=== PATIENT | female | born 1965 | race African-American/Black ===

== ENCOUNTER 2017-07-11 09:50 | Inpatient (IN) | payer MEDICARE, OTHER ==
[~2017-07-11] VITALS: Ht 170.2 cm; Wt 68.0 kg
[2017-07-11] MEDS ORDERED: THERA M PO (10:24)
[2017-07-11] MEDS ORDERED: [UNRECOGNIZED DRUG - OTHER] (10:24)
[2017-07-11] MEDS ORDERED: ASCO500C18 PO (10:24)
[2017-07-11] MEDS ORDERED: LOSA50TA21 PO (10:24)
[2017-07-11] MEDS ORDERED: FAMO-132 PO (10:24)
[2017-07-11] MEDS ORDERED: BISA10SU8 RC (10:24)
[2017-07-11] MEDS ORDERED: [UNRECOGNIZED DRUG - OTHER] PO (10:24)
[2017-07-11] MEDS ORDERED: [UNRECOGNIZED DRUG - OTHER] PO (10:24)
[2017-07-11] MEDS ORDERED: SENN-167 PO (10:24)
[2017-07-11 10:37] LABS: EOSINOPHILS # (AUTO) 0.1 K/uL (0.0-0.7)
[2017-07-11 10:39] LABS: BASOPHILS % (AUTO) 0.4 % (0.0-2.0); EOSINOPHILS % (AUTO) 0.8 % (0.0-7.0); HEMATOCRIT 23.2 % (31.2-41.9); HEMOGLOBIN 7.5 g/dL (10.9-14.3); LYMPHOCYTES # (AUTO) 1.3 K/uL (20.0-40.0); LYMPHOCYTES % (AUTO) 11.8 % (20.5-51.5); MEAN CORPUSCULAR HEMOGLOBIN 26.7 uug (24.7-32.8); MEAN CORPUSCULAR HGB CONC 32 g/dL (32.3-35.6); MEAN CORPUSCULAR VOLUME 82.6 fL (75.5-95.3); MONOCYTES # (AUTO) 0.9 K/uL (2.0-10.0); MONOCYTES % (AUTO) 8.3 % (0.0-11.0); NEUTROPHILS # (AUTO) 8.6 K/uL (1.8-8.9); NEUTROPHILS % (AUTO) 78.7 % (38.5-71.5); PLATELET COUNT (AUTO) 580 K/uL (179-408); RED BLOOD CELL COUNT(AUTO) 2.81 MIL/uL (3.63-4.92); WHITE BLOOD COUNT (AUTO) 10.9 K/uL (3.8-11.8)
[2017-07-11 10:47] LABS: CARBON DIOXIDE 24 mmol/L (21-32); CHLORIDE 100 mmol/L (98-107); CREATININE 0.6 mg/dL (0.6-1.3); GLUCOSE 124 mg/dL (74-106); POTASSIUM 4.1 mmol/L (3.5-5.1); UREA NITROGEN, BLOOD 8 mg/dL (7-18)
[2017-07-11 10:53] LABS: ALANINE AMINOTRANSFERASE 17 U/L (14-59); ALKALINE PHOSPHATASE 177 U/L (50-136); ASPARTATE AMINOTRANSFERASE 18 U/L (15-37); BILIRUBIN,DIRECT < 0.1 mg/dL (0.0-0.2); BILIRUBIN,TOTAL 0.1 mg/dL (0.2-1.0); TOTAL PROTEIN, SERUM 8.1 g/dL (6.4-8.2)
[2017-07-11] MEDS ORDERED: MAGNESIUM HYDROXIDE 30 ML LIQUID UDC PO PRN (11:30)
[2017-07-11] MEDS ORDERED: ONDANSETRON 4 MG/2 ML VIAL IV PRN (11:30)
[2017-07-11] MEDS ORDERED: Z GUARD REMEDY PASTE 57 GM TUBE TOP PRN (11:30)
[2017-07-11] MEDS ORDERED: ACETAMINOPHEN 325 MG TABLET PO PRN (11:30)
[2017-07-11] MEDS ORDERED: DEXT15DR6 EACHEYE (11:45)
[2017-07-11] MEDS ORDERED: LEVO112T5 PO (11:45)
[2017-07-11] MEDS ORDERED: POLY255P2 PO (11:45)
[2017-07-11] MEDS ORDERED: FERR325T28 PO (11:45)
[2017-07-11] MEDS ORDERED: ONDA4TAB11 PO (11:45)
[2017-07-11] MEDS ORDERED: DEXT15DR25 EACHEYE (11:45)
[2017-07-11] MEDS ORDERED: ZINC220C8 PO (11:45)
[2017-07-11] MEDS ORDERED: AMLO5TAB2 PO (11:45)
[2017-07-11] MEDS ORDERED: MAGN296S31 PO (11:45)
[2017-07-11] MEDS ORDERED: HEPARIN SOD SQ (11:45)
[2017-07-11] MEDS ORDERED: MUPI22OI2 (11:45)
[2017-07-11] MEDS ORDERED: LABE100T PO (11:45)
[2017-07-11] MEDS ORDERED: MAGNESIUM CITRATE 296 ML BOTTLE PO PRN (14:15)
[2017-07-11] MEDS ORDERED: POLYETHYLENE GLYCOL 3350 238 GM POWDER PO PRN (14:15)
[2017-07-11] MEDS ORDERED: BISACODYL 10 MG SUPP.RECT RC PRN (14:15)
[2017-07-11] MEDS: AMLODIPINE 5 MG TABLET PO SCH ×2 (14:15→21:00)
[2017-07-11] MEDS ORDERED: MIRALAX 17 GM POWD.PACK PO PRN (14:30)
[2017-07-11] MEDS: PIPERACILLIN/TAZOBACTAM/D5W 50 ML IV SCH ×2 (14:50→19:43)
[2017-07-11] MEDS: IV NS 1000 ML 1,000 ML IV PRN (15:04)
[2017-07-11 15:56] VITALS: BP 125/66
[2017-07-11] MEDS: FERROUS SULFATE 325 MG TABEC PO SCH (17:09)
[2017-07-11] MEDS: POLYVINYL ALCOHOL OPHT DROPS 15 ML BOTTLE EACHEYE SCH ×2 (17:09→23:43)
[2017-07-11] MEDS: LABETALOL HCL 100 MG TABLET PO SCH (17:09)
[2017-07-11 17:14] LABS: *BILIRUBIN,URIN NEGATIVE (NEGATIVE); *BLOOD, URINE 2+ (NEGATIVE); *COLOR,URINE YELLOW (YELLOW); *KETONES,URINE NEGATIVE (NEGATIVE); *PROTEIN,URINE 1+ (NEGATIVE); *UROBILINOGEN,URINE 0.2 E.U./dl (NORMAL); LEUKOCYTE ESTERASE ,URINE 3+ (NEGATIVE); NITRITE, URINE NEGATIVE (NEGATIVE); UGLUCOSE NEGATIVE (NEGATIVE)
[2017-07-11 17:31] LABS: *CLARITY,URINE SLIGHTLY CLOUDY (CLEAR)
[2017-07-11 17:44] LABS: BACTERIA,URINE MANY /HPF (NONE SEEN); SQUAMOUS EPITHELIAL CELL,UR FEW /HPF (NONE SEEN); WBC,URINE 50-80 /HPF (0-3)
[2017-07-11 17:55] LABS: HEMATOCRIT 24.7 % (31.2-41.9); HEMOGLOBIN 8.1 g/dL (10.9-14.3)
[2017-07-11 20:18] VITALS: BP 109/59
[2017-07-11 20:55] LABS: *OCCULT BLOOD STOOL NEGATIVE (NEGATIVE)
[2017-07-11] MEDS: LOSARTAN POTASSIUM 50 MG TABLET PO SCH (20:59)
[2017-07-11] MEDS: SENNOSIDES 1 TABLET PO SCH (21:00)
[2017-07-12] VITALS (9 sets, daily range): BP systolic 102–119; BP diastolic 61–74
[2017-07-12] MEDS: PIPERACILLIN/TAZOBACTAM/D5W 50 ML IV SCH ×2 (03:24→09:20)
[2017-07-12] MEDS: POLYVINYL ALCOHOL OPHT DROPS 15 ML BOTTLE EACHEYE SCH ×4 (06:33→23:48)
[2017-07-12] MEDS: LEVOTHYROXINE SODIUM 112 MCG TABLET PO SCH (06:33)
[2017-07-12 08:29] LABS: BILIRUBIN,TOTAL 0.7 mg/dL (0.2-1.0); CREATININE 0.6 mg/dL (0.6-1.3); MAGNESIUM 1.8 mg/dL (1.8-2.4); PHOSPHOROUS 4.4 mg/dL (2.5-4.9); TOTAL PROTEIN, SERUM 8.1 g/dL (6.4-8.2)
[2017-07-12 08:57] LABS: BASOPHILS % (AUTO) 0.5 % (0.0-2.0); EOSINOPHILS # (AUTO) 0.1 K/uL (0.0-0.7); EOSINOPHILS % (AUTO) 1.3 % (0.0-7.0); HEMATOCRIT 25.6 % (31.2-41.9); HEMOGLOBIN 8.5 g/dL (10.9-14.3); LYMPHOCYTES # (AUTO) 1.1 K/uL (20.0-40.0); LYMPHOCYTES % (AUTO) 12.4 % (20.5-51.5); MEAN CORPUSCULAR HEMOGLOBIN 27.5 uug (24.7-32.8); MEAN CORPUSCULAR HGB CONC 33 g/dL (32.3-35.6); MEAN CORPUSCULAR VOLUME 82.4 fL (75.5-95.3); MONOCYTES # (AUTO) 0.7 K/uL (2.0-10.0); MONOCYTES % (AUTO) 8.1 % (0.0-11.0); NEUTROPHILS # (AUTO) 6.8 K/uL (1.8-8.9); NEUTROPHILS % (AUTO) 77.7 % (38.5-71.5); PLATELET COUNT (AUTO) 504 K/uL (179-408); WHITE BLOOD COUNT (AUTO) 8.8 K/uL (3.8-11.8)
[2017-07-12] MEDS ORDERED: PANTOPRAZOLE SODIUM 40 MG TABLET.DR PO SCH (09:00)
[2017-07-12] MEDS ORDERED: Medication Not On Formulary EA (Ascorbic Acid (Vitamin C) 500 MG) PO SCH (09:00)
[2017-07-12] MEDS: DOCUSATE SODIUM 100 MG CAPSULE PO SCH ×2 (10:18→20:32)
[2017-07-12] MEDS: AMLODIPINE 5 MG TABLET PO SCH ×2 (10:18→20:32)
[2017-07-12] MEDS: ASCORBIC ACID 500 MG TABLET PO SCH (10:18)
[2017-07-12] MEDS: LABETALOL HCL 100 MG TABLET PO SCH ×2 (10:19→17:14)
[2017-07-12] MEDS: LOSARTAN POTASSIUM 50 MG TABLET PO SCH ×2 (10:20→20:31)
[2017-07-12] MEDS: ZINC SULFATE 220 MG CAPSULE PO SCH (10:20)
[2017-07-12] MEDS: FERROUS SULFATE 325 MG TABEC PO SCH ×2 (10:20→16:47)
[2017-07-12] MEDS: PANTOPRAZOLE SODIUM 40 MG VIAL IV SCH (10:20)
[2017-07-12 11:10] LABS: THYROID STIMULATING HORMONE 4.526 mIU/mL (0.358-3.740)
[2017-07-12] MEDS: CEFTRIAXONE 1 G in IV DEXTROSE 5% 50 ML IV SCH (11:28)
[2017-07-12] MEDS: PROTEIN SUPPLEMENT (PROSTAT) 30 ML LIQUID PO SCH ×2 (12:00→17:00)
[2017-07-12] MEDS: SENNOSIDES 1 TABLET PO SCH (20:31)
[2017-07-13] MEDS: IV NS 1000 ML 1,000 ML IV PRN ×3 (00:31→21:15)
[2017-07-13 06:00] VITALS: BP 120/57
[2017-07-13] MEDS: LEVOTHYROXINE SODIUM 112 MCG TABLET PO SCH (06:26)
[2017-07-13] MEDS: POLYVINYL ALCOHOL OPHT DROPS 15 ML BOTTLE EACHEYE SCH ×4 (06:26→23:58)
[2017-07-13 06:54] LABS: ALANINE AMINOTRANSFERASE 21 U/L (14-59); ALKALINE PHOSPHATASE 171 U/L (50-136); ASPARTATE AMINOTRANSFERASE 17 U/L (15-37); BILIRUBIN,TOTAL 0.3 mg/dL (0.2-1.0); CARBON DIOXIDE 25 mmol/L (21-32); CHLORIDE 105 mmol/L (98-107); CREATININE 0.5 mg/dL (0.6-1.3); GLUCOSE 98 mg/dL (74-106); MAGNESIUM 1.8 mg/dL (1.8-2.4); PHOSPHOROUS 3.8 mg/dL (2.5-4.9); POTASSIUM 3.8 mmol/L (3.5-5.1); TOTAL PROTEIN, SERUM 7.5 g/dL (6.4-8.2); UREA NITROGEN, BLOOD 6 mg/dL (7-18)
[2017-07-13] MEDS: PROTEIN SUPPLEMENT (PROSTAT) 30 ML LIQUID PO SCH ×3 (08:00→16:51)
[2017-07-13] MEDS: LOSARTAN POTASSIUM 50 MG TABLET PO SCH ×2 (09:00→21:14)
[2017-07-13] MEDS: AMLODIPINE 5 MG TABLET PO SCH ×2 (09:00→21:14)
[2017-07-13] MEDS: DOCUSATE SODIUM 100 MG CAPSULE PO SCH ×2 (09:00→21:14)
[2017-07-13] MEDS: ASCORBIC ACID 500 MG TABLET PO SCH (09:00)
[2017-07-13] MEDS: ZINC SULFATE 220 MG CAPSULE PO SCH (09:00)
[2017-07-13] MEDS: LABETALOL HCL 100 MG TABLET PO SCH ×2 (09:00→16:38)
[2017-07-13] MEDS: FERROUS SULFATE 325 MG TABEC PO SCH ×2 (09:00→16:39)
[2017-07-13] MEDS: CEFTRIAXONE 1 G in IV DEXTROSE 5% 50 ML IV SCH (09:33)
[2017-07-13] MEDS: PANTOPRAZOLE SODIUM 40 MG VIAL IV SCH (09:33)
[2017-07-13 09:48] VITALS: BP 131/64
[2017-07-13 12:01] VITALS: BP 112/66
[2017-07-13 15:38] VITALS: BP 107/64
[2017-07-13 15:48] LABS: BASOPHILS # (AUTO) 0.1 K/uL (0.0-8.0); BASOPHILS % (AUTO) 0.8 % (0.0-2.0); EOSINOPHILS # (AUTO) 0.1 K/uL (0.0-0.7); EOSINOPHILS % (AUTO) 1.5 % (0.0-7.0); HEMATOCRIT 24.7 % (31.2-41.9); HEMOGLOBIN 8.2 g/dL (10.9-14.3); LYMPHOCYTES # (AUTO) 1.5 K/uL (20.0-40.0); LYMPHOCYTES % (AUTO) 19.4 % (20.5-51.5); MEAN CORPUSCULAR HEMOGLOBIN 27.4 uug (24.7-32.8); MEAN CORPUSCULAR HGB CONC 33 g/dL (32.3-35.6); MEAN CORPUSCULAR VOLUME 82.3 fL (75.5-95.3); MONOCYTES # (AUTO) 0.6 K/uL (2.0-10.0); MONOCYTES % (AUTO) 7.4 % (0.0-11.0); NEUTROPHILS # (AUTO) 5.5 K/uL (1.8-8.9); NEUTROPHILS % (AUTO) 70.9 % (38.5-71.5); PLATELET COUNT (AUTO) 542 K/uL (179-408); RED BLOOD CELL COUNT(AUTO) 3.01 MIL/uL (3.63-4.92); WHITE BLOOD COUNT (AUTO) 7.7 K/uL (3.8-11.8)
[2017-07-13 20:00] VITALS: BP 119/71
[2017-07-13] MEDS: SENNOSIDES 1 TABLET PO SCH (21:14)
[2017-07-13] MEDS ORDERED: FUROSEMIDE 20 MG/2 ML VIAL IV PRN (21:30)
[2017-07-14] VITALS (12 sets, daily range): BP systolic 113–141; BP diastolic 62–81
[2017-07-14] MEDS: POLYVINYL ALCOHOL OPHT DROPS 15 ML BOTTLE EACHEYE SCH ×3 (06:17→17:40)
[2017-07-14] MEDS: LEVOTHYROXINE SODIUM 112 MCG TABLET PO SCH (06:17)
[2017-07-14 08:41] LABS: BASOPHILS % (AUTO) 0.6 % (0.0-2.0); EOSINOPHILS # (AUTO) 0.1 K/uL (0.0-0.7); EOSINOPHILS % (AUTO) 1.4 % (0.0-7.0); LYMPHOCYTES # (AUTO) 1.6 K/uL (20.0-40.0); LYMPHOCYTES % (AUTO) 20.3 % (20.5-51.5); MEAN CORPUSCULAR HEMOGLOBIN 27.7 uug (24.7-32.8); MEAN CORPUSCULAR HGB CONC 34 g/dL (32.3-35.6); MEAN CORPUSCULAR VOLUME 82.5 fL (75.5-95.3); MONOCYTES # (AUTO) 0.6 K/uL (2.0-10.0); MONOCYTES % (AUTO) 7.5 % (0.0-11.0); NEUTROPHILS # (AUTO) 5.6 K/uL (1.8-8.9); NEUTROPHILS % (AUTO) 70.2 % (38.5-71.5); PLATELET COUNT (AUTO) 571 K/uL (179-408); RED BLOOD CELL COUNT(AUTO) 3.81 MIL/uL (3.63-4.92); WHITE BLOOD COUNT (AUTO) 7.9 K/uL (3.8-11.8)
[2017-07-14 08:49] LABS: HEMATOCRIT 31.4 % (31.2-41.9); HEMOGLOBIN 10.6 g/dL (10.9-14.3)
[2017-07-14] MEDS: PROTEIN SUPPLEMENT (PROSTAT) 30 ML LIQUID PO SCH ×3 (08:51→17:40)
[2017-07-14] MEDS: ZINC SULFATE 220 MG CAPSULE PO SCH (08:51)
[2017-07-14] MEDS: PANTOPRAZOLE SODIUM 40 MG VIAL IV SCH ×2 (08:52→09:00)
[2017-07-14] MEDS: DOCUSATE SODIUM 100 MG CAPSULE PO SCH ×2 (08:52→20:37)
[2017-07-14] MEDS: FERROUS SULFATE 325 MG TABEC PO SCH ×2 (08:52→17:39)
[2017-07-14] MEDS: ASCORBIC ACID 500 MG TABLET PO SCH (08:52)
[2017-07-14 08:53] LABS: ALANINE AMINOTRANSFERASE 18 U/L (14-59); ALKALINE PHOSPHATASE 164 U/L (50-136); ASPARTATE AMINOTRANSFERASE 16 U/L (15-37); BILIRUBIN,TOTAL 0.4 mg/dL (0.2-1.0); CARBON DIOXIDE 25 mmol/L (21-32); CHLORIDE 105 mmol/L (98-107); CREATININE 0.4 mg/dL (0.6-1.3); GLUCOSE 104 mg/dL (74-106); MAGNESIUM 1.8 mg/dL (1.8-2.4); PHOSPHOROUS 4.1 mg/dL (2.5-4.9); POTASSIUM 3.7 mmol/L (3.5-5.1); TOTAL PROTEIN, SERUM 8.3 g/dL (6.4-8.2); UREA NITROGEN, BLOOD 7 mg/dL (7-18)
[2017-07-14] MEDS: LABETALOL HCL 100 MG TABLET PO SCH ×2 (08:53→17:40)
[2017-07-14] MEDS: AMLODIPINE 5 MG TABLET PO SCH ×2 (08:54→20:38)
[2017-07-14] MEDS: LOSARTAN POTASSIUM 50 MG TABLET PO SCH ×2 (08:55→20:38)
[2017-07-14] MEDS: CEFTRIAXONE 1 G in IV DEXTROSE 5% 50 ML IV SCH (09:53)
[2017-07-14] MEDS ORDERED: DOCU100C36 PO (13:58)
[2017-07-14] MEDS ORDERED: LACT1CAP57 PO (13:58)
[2017-07-14] MEDS ORDERED: ACET325T53 PO (13:58)
[2017-07-14] MEDS ORDERED: PROT30LI PO (13:58)
[2017-07-14] MEDS ORDERED: CEPH500C2 PO (13:58)
[2017-07-14] MEDS ORDERED: PANT40TA2 PO (13:58)
[2017-07-14] MEDS ORDERED: POLY15DR27 EACHEYE (13:58)
[2017-07-14] MEDS ORDERED: CEPHALEXIN MONOHYDRATE 500 MG CAPSULE PO SCH (14:00)
[2017-07-14] MEDS: SENNOSIDES 1 TABLET PO SCH (20:37)
[2017-07-14] MEDS ORDERED: LACTOBACILLUS RHAMNOSUS GG 1 EACH CAPSULE PO SCH (21:00)
[2017-07-15] MEDS ORDERED: PANTOPRAZOLE SODIUM 40 MG TABLET.DR PO SCH (07:00)
== END 2017-07-14 20:15 | DRG 811 ==
LOC: ER 09:50 → MED 11:37
PROVIDERS: ADMIT Internal Medicine; ATTEND Nurse Practitioner Acute Care
PROC: 30233N1 Transfusion of Nonautologous Red Blood Cells into Peripheral Vein, Percutaneous Approach (ICD-10-PCS; principal; 2017-07-12)
DX: D64.9 Anemia, unspecified (principal); E43 Unspecified severe protein-calorie malnutrition; L89.154 Pressure ulcer of sacral region, stage 4; E87.2 Acidosis; G82.20 Paraplegia, unspecified; K59.2 Neurogenic bowel, not elsewhere classified; E87.1 Hypo-osmolality and hyponatremia; N39.0 Urinary tract infection, site not specified; N31.9 Neuromuscular dysfunction of bladder, unspecified; I11.9 Hypertensive heart disease without heart failure; Z93.50 Unspecified cystostomy status; H54.3 Unqualified visual loss, both eyes; T14.90XS Injury, unspecified, sequela; V89.2XXS Person injured in unspecified motor-vehicle accident, traffic, sequela; Z82.49 Family history of ischemic heart disease and other diseases of the circulatory system; Z80.8 Family history of malignant neoplasm of other organs or systems; Z80.6 Family history of leukemia; Z80.3 Family history of malignant neoplasm of breast; B96.20 Unspecified Escherichia coli [E. coli] as the cause of diseases classified elsewhere; K56.41 Fecal impaction; K21.9 Gastro-esophageal reflux disease without esophagitis; E03.9 Hypothyroidism, unspecified; Z90.49 Acquired absence of other specified parts of digestive tract; Z68.23 Body mass index [BMI] 23.0-23.9, adult; D47.3 Essential (hemorrhagic) thrombocythemia; R79.89 Other specified abnormal findings of blood chemistry
CPT/HCPCS: 36415; 70030-TC; 71045; 83550; 83605; 83735; 84100; 84443; 84481; 84703; 85018; 85025; 85730; 86850; 86900; 86901; 86920; 87040; 87077; 87086; 93005; A4217; A4663; C9113; J0696; J2405; J2543; J7030; J7040; J7060; P9016-BL; P9021

== ENCOUNTER 2017-12-07 10:21 | Inpatient (IN) | payer MEDICARE, OTHER ==
[~2017-12-07] VITALS: Ht 170.2 cm; Wt 72.6 kg
[~2017-12-07 10:21] MED LIST: ACET325T53 PO; AMLO5TAB2 PO; ASCO500C18 PO; BISA10SU8 RC; CEPH500C2 PO; DOCU100C36 PO; LACT1CAP57 PO; LEVO112T5 PO; MAGN296S31 PO; ONDA4TAB11 PO; PANT40TA2 PO; POLY15DR27 EACHEYE; POLY255P2 PO; PROT30LI PO; SENN-167 PO; ZINC220C8 PO
[2017-12-07] MEDS ORDERED: MULT-1185 PO (10:42)
[2017-12-07] MEDS ORDERED: FERR324T4 PO (10:42)
--- NOTE | 2017-12-07 10:46 | NUR ---
PT IS IN ROOM #2A. DR BOLANOS EVALUATED THE PT. AFTER 6 ATTEMPTS 3 NURSES UNABLE TO INSERT IV ACCESS. PT HAS NO USABLE VEINS. FRANCOISE BOLANOS NOTIFIED.
[2017-12-07] MEDS ORDERED: IV NORMAL SALINE 1000 ML BAG IV ONE (11:00)
[2017-12-07 11:32] LABS: BASOPHILS % (AUTO) 0.3 % (0.0-2.0); HEMATOCRIT 34.3 % (31.2-41.9); HEMOGLOBIN 11.1 g/dL (10.9-14.3); LYMPHOCYTES # (AUTO) 0.5 K/uL (20.0-40.0); LYMPHOCYTES % (AUTO) 4.5 % (20.5-51.5); MEAN CORPUSCULAR HEMOGLOBIN 25.6 uug (24.7-32.8); MEAN CORPUSCULAR HGB CONC 32 g/dL (32.3-35.6); MEAN CORPUSCULAR VOLUME 79.5 fL (75.5-95.3); MONOCYTES # (AUTO) 0.1 K/uL (2.0-10.0); MONOCYTES % (AUTO) 1.3 % (0.0-11.0); NEUTROPHILS # (AUTO) 10.4 K/uL (1.8-8.9); NEUTROPHILS % (AUTO) 93.9 % (38.5-71.5); PLATELET COUNT (AUTO) 440 K/uL (179-408); RED BLOOD CELL COUNT(AUTO) 4.32 MIL/uL (3.63-4.92); WHITE BLOOD COUNT (AUTO) 11.1 K/uL (3.8-11.8)
--- NOTE | 2017-12-07 11:36 | NUR ---
DR BOLANOS TRIED TO INSERT IV S/L TO PT'S NECK VEINS, NO SUCCESS. NURSING NON DESTRUCTIVE EVALUATION SPECIALIST MARSHALL WAS CALLED FOR PICC LINE SPECIALIST ACCORDING TO DR BOLANOS ORDER.
[2017-12-07 11:40] LABS: CREATININE 1.4 mg/dL (0.6-1.3); POTASSIUM 4.4 mmol/L (3.5-5.1)
[2017-12-07 11:46] LABS: BILIRUBIN,DIRECT 0.3 mg/dL (0.0-0.2); TOTAL PROTEIN, SERUM 7.8 g/dL (6.4-8.2)
--- NOTE | 2017-12-07 12:10 | NUR ---
3 LYMENS CENTAL LINE WAS INSERTED BY DR BOLANOS IN PT's RIGHT GROIN AREA. PT TOLERATED TO PROCEDURE WITHOUT COMPLCATIONS.
[2017-12-07] MEDS ORDERED: PIPERACILLIN SODIUM/TAZOBACTAM 3.375 G in IV DEXTROSE 5% 50 ML IV ONE (12:30)
[2017-12-07] MEDS ORDERED: VANCOMYCIN IV 200 ML IV ONE (12:30)
[2017-12-07 13:15] LABS: *BILIRUBIN,URIN NEGATIVE (NEGATIVE); *BLOOD, URINE 3+ (NEGATIVE); *CLARITY,URINE CLOUDY (CLEAR); *COLOR,URINE YELLOW (YELLOW); *KETONES,URINE NEGATIVE (NEGATIVE); LEUKOCYTE ESTERASE ,URINE 1+ (NEGATIVE); NITRITE, URINE NEGATIVE (NEGATIVE); UGLUCOSE NEGATIVE (NEGATIVE)
[2017-12-07 13:19] LABS: *PROTEIN,URINE 3+ (NEGATIVE)
[2017-12-07 13:23] LABS: BACTERIA,URINE FEW /HPF (NONE SEEN); SQUAMOUS EPITHELIAL CELL,UR FEW /HPF (NONE SEEN); WBC,URINE TNTC /HPF (0-3)
[2017-12-07] MEDS ORDERED: VANCOMYCIN IV 200 ML ONE (14:14)
[2017-12-07] MEDS ORDERED: PIPERACILLIN/TAZOBACTAM/D5W 50 ML IV ONE (14:14)
[2017-12-07] MEDS ORDERED: MORPHINE SULFATE 2 MG/1 ML DISP.SYRIN IV PRN (14:30)
[2017-12-07] MEDS ORDERED: BISACODYL 10 MG SUPP.RECT RC PRN (14:30)
[2017-12-07] MEDS ORDERED: ACETAMINOPHEN 325 MG TABLET PO PRN (14:30)
[2017-12-07] MEDS ORDERED: MAGNESIUM HYDROXIDE 30 ML LIQUID UDC PO PRN (14:30)
[2017-12-07] MEDS ORDERED: MAGNESIUM CITRATE 296 ML BOTTLE PO SCH (14:30)
--- NOTE | 2017-12-07 14:42 | NUR ---
REPORT GIVEN TO CUSTOMER LOYALTY REPRESENTATIVE. PT WAS TRANSFERED TO ROOM #205.
--- NOTE | 2017-12-07 15:15 | NUR ---
Received this admission from ER per yg, this 51 yo female with the chief complaint of nausea and vomiting with the diagnosis of Sepsis. Transferred to bed comfortably. Routine admission care rendered. placed on tele ST 115. Continued infusion of Vancomycin IV. Dr. Mills informed of admission with orders
--- NOTE | 2017-12-07 15:30 | NUR ---
Noted decubitus ulcer on sacral and buttocks area. Photos taken and wound care done. Repositioned in bed comfortably. Air mattress ordered with wound care consult
[2017-12-07 15:46] LABS: *URINE HCG, QUAL NEGATIVE (NEGATIVE)
[2017-12-07 16:18] VITALS: BP 123/65
--- NOTE | 2017-12-07 17:19 | NUR ---
Repeat lactic acid drawn from Triple Lumen Central Line. IVF of NS restarted, infusing well
[2017-12-07] MEDS: PIPERACILLIN/TAZOBACTAM/D5W 50 ML IV SCH ×2 (17:48→23:11)
[2017-12-07] MEDS: POLYVINYL ALCOHOL OPHT DROPS 15 ML BOTTLE EACHEYE SCH ×2 (17:48→23:12)
[2017-12-07] MEDS: AMLODIPINE 5 MG TABLET PO SCH (17:49)
--- NOTE | 2017-12-07 18:02 | NUR ---
Eating fairly, assisted by . Repositioned in bed comfortably
--- NOTE | 2017-12-07 19:30 | NUR ---
Received patient from day shift nurse. Patient in stable condition at start of shift with no acute distress. Vital signs within range. Pertinent assessment completed at start of shift. Temp slightly elevated at start of shift at 100.9. Will provide cooling measures & administer Tylenol per MD order & reassess. Noted with montes cath flowing with urine. Patient has a right groin triple lumen cath flowing with IV NS at 100cc/hr. On ATB therapy. Call light within reach. Will continue to monitor through shift.
[2017-12-07 20:00] VITALS: BP 107/54
[2017-12-07] MEDS: ACETAMINOPHEN 325 MG TABLET PO PRN (20:06)
[2017-12-07] MEDS: LACTOBACILLUS RHAMNOSUS GG 1 EACH CAPSULE PO SCH (20:06)
[2017-12-07] MEDS: DOCUSATE SODIUM 100 MG CAPSULE PO SCH (20:06)
[2017-12-07] MEDS: SENNOSIDES 1 TABLET PO SCH (20:06)
--- NOTE | 2017-12-07 22:01 | NUR ---
Reassessed patient temp. Currently at 101.9. Provided cooling measures for patient. Administered Tylenol 650 at 2005. Lactic acid also increased to 3.4 critical lab value. Spoke with MD Mills. NNO per just continue to monitor.
--- NOTE | 2017-12-07 22:43 | NUR ---
Reassessed patient temp currently at 99.8. Will continue to monitor.
[2017-12-08] VITALS (7 sets, daily range): BP systolic 93–116; BP diastolic 48–62
[2017-12-08] MEDS: AMLODIPINE 5 MG TABLET PO SCH ×3 (01:54→21:10)
[2017-12-08] MEDS: POLYVINYL ALCOHOL OPHT DROPS 15 ML BOTTLE EACHEYE SCH ×4 (05:19→23:21)
[2017-12-08] MEDS: PIPERACILLIN/TAZOBACTAM/D5W 50 ML IV SCH ×4 (05:19→23:21)
[2017-12-08] MEDS: PANTOPRAZOLE SODIUM 40 MG TABLET.DR PO SCH (06:13)
[2017-12-08] MEDS: LEVOTHYROXINE SODIUM 112 MCG TABLET PO SCH (06:13)
--- NOTE | 2017-12-08 06:21 | NUR ---
Patient slept well during the night. No acute distress. Sinus Tachy on the Tele monitor.Temp was monitored closely & currently at 98.7. BP was slightly low during shift. BP med held during the shift d/t decreased BP. Currently at 109/56. All medications given per MD order. All needs attended to promptly. Skin care provided. Patient turned & reposition every 2 hours. Diaper changed per soiling. Safety measures implemented. Call light in reach of patient. Will endorse to day shift nurse.
[2017-12-08 06:43] LABS: CREATININE 0.9 mg/dL (0.6-1.3); MAGNESIUM 1.4 mg/dL (1.8-2.4); PHOSPHOROUS 4.1 mg/dL (2.5-4.9); POTASSIUM 3.5 mmol/L (3.5-5.1)
[2017-12-08 07:37] LABS: BASOPHILS % (AUTO) 0.2 % (0.0-2.0); HEMATOCRIT 27.8 % (31.2-41.9); HEMOGLOBIN 8.9 g/dL (10.9-14.3); LYMPHOCYTES # (AUTO) 0.4 K/uL (20.0-40.0); LYMPHOCYTES % (AUTO) 2.1 % (20.5-51.5); MEAN CORPUSCULAR HEMOGLOBIN 25.5 uug (24.7-32.8); MEAN CORPUSCULAR HGB CONC 32 g/dL (32.3-35.6); MEAN CORPUSCULAR VOLUME 79.7 fL (75.5-95.3); MONOCYTES # (AUTO) 0.4 K/uL (2.0-10.0); MONOCYTES % (AUTO) 1.8 % (0.0-11.0); NEUTROPHILS # (AUTO) 19.9 K/uL (1.8-8.9); NEUTROPHILS % (AUTO) 95.9 % (38.5-71.5); PLATELET COUNT (AUTO) 324 K/uL (179-408); RED BLOOD CELL COUNT(AUTO) 3.49 MIL/uL (3.63-4.92); WHITE BLOOD COUNT (AUTO) 20.8 K/uL (3.8-11.8)
--- NOTE | 2017-12-08 07:48 | NUR ---
Sleeping, comfortable, not in distress. IVF infusing. Tele ST 122
[2017-12-08] MEDS: FERROUS SULFATE 325 MG TABEC PO SCH (08:34)
[2017-12-08] MEDS: LACTOBACILLUS RHAMNOSUS GG 1 EACH CAPSULE PO SCH ×2 (08:34→21:09)
[2017-12-08] MEDS: DOCUSATE SODIUM 100 MG CAPSULE PO SCH ×2 (08:34→21:09)
[2017-12-08] MEDS: MULTIVIT, IRON, MIN NO. 8, FA TABLET PO SCH (08:35)
[2017-12-08] MEDS: ASCORBIC ACID 500 MG TABLET PO SCH (08:35)
[2017-12-08] MEDS: ACETAMINOPHEN 325 MG TABLET PO PRN ×3 (08:36→23:21)
--- NOTE | 2017-12-08 08:36 | NUR ---
Assisted with meal. Complaining of headache, Tylenol po given.Resting after.
[2017-12-08] MEDS ORDERED: Medication Not On Formulary EA (Ascorbic Acid (Vitamin C) 500 MG) PO SCH (09:00)
[2017-12-08] MEDS ORDERED: Medication Not On Formulary EA (Multivit-Min/Iron Fum/Folic AC (Multi-Vitamin-Minerals T PO SCH (09:00)
[2017-12-08] MEDS ORDERED: MIRALAX 17 GM POWD.PACK PO PRN (11:00)
[2017-12-08] MEDS ORDERED: POLYETHYLENE GLYCOL 3350 238 GM POWDER PO PRN (11:00)
--- NOTE | 2017-12-08 11:29 | NUR ---
Followed 1st step mattress delivery
[2017-12-08] MEDS ORDERED: SODIUM HYPOCHLORITE 0.25% 480 ML BOTTLE TOP SCH (12:30)
--- NOTE | 2017-12-08 12:30 | NUR ---
Seen by Karlee YOUNG, examined wound. Wound care done as ordered. Sponge bath given. Placed on 1st step mattress. Repositioned comfortably.
[2017-12-08] MEDS: MAGNESIUM SULFATE/D5W 100 ML IV SCH ×4 (13:18→17:12)
--- NOTE | 2017-12-08 19:10 | NUR ---
Repositioned comfortably, kept dry
[2017-12-08] MEDS: SODIUM HYPOCHLORITE 0.125% 473 ML BOTTLE TP SCH (21:09)
[2017-12-08] MEDS: SENNOSIDES 1 TABLET PO SCH (21:09)
--- NOTE | 2017-12-08 21:45 | NUR ---
PT'S ON BED REST COMFORTABLY,DENIED OF PAIN OR ANY DISCOMFORT.PT'S ON AIR MATTRESS FOR WOUND CARE.GOT TELEPHONE CONSENT FROM PT'S FOR DEBRIDEMENT IN AM,PER PT STATED THAT"I ALREADY TALKED TO MY BECAUSE ME DOCTOR ALREADY EXPLAINED TO ME TODAY IN THE AFTERNOON";ALL QUESTIONS WERE ANSWERED.ASSISTED FOR PM AND SKIN CARE ON BED;EDUCATED TO PT REGARDING WOUND CARE ORDER FROM MD;PT VERBALIZED UNDERSTANDING AND COOPERATIVE.CENTRAL LINE CARE AT THIS TIME.PT HAD LARGE BM,NORMAL STOOL NOTED.KEPT COMFORT.MAINTAINED ADEQUATE I/O.SUPRA-PUBIC CATHETER'S CARE AT THIS TIME.TELEMETRY'S ST 108/MIN.
[2017-12-08] MEDS: Z GUARD REMEDY PASTE 57 GM TUBE TOP PRN (23:22)
[2017-12-08] MEDS: IV NS 1000 ML 1,000 ML IV PRN (23:38)
[2017-12-09] VITALS: BP 119/60
--- NOTE | 2017-12-09 01:00 | NUR ---
ASSISTED PT TO REPOSITION AND KEPT WARM BLANKET REQUEST.TELEMETRY'S ST 118/MIN NOTED.CLOSELY MONITORING TO PT.KEPT CALL-LIGHT WITHIN REACH.PT DENIED OF PAIN OR ANY DISCOMFORT.
[2017-12-09 04:00] VITALS: BP 112/53
[2017-12-09] MEDS: PIPERACILLIN/TAZOBACTAM/D5W 50 ML IV SCH ×4 (05:10→23:20)
[2017-12-09] MEDS: POLYVINYL ALCOHOL OPHT DROPS 15 ML BOTTLE EACHEYE SCH ×4 (05:10→23:21)
[2017-12-09] MEDS: PANTOPRAZOLE SODIUM 40 MG TABLET.DR PO SCH (06:13)
[2017-12-09] MEDS: LEVOTHYROXINE SODIUM 112 MCG TABLET PO SCH (06:13)
--- NOTE | 2017-12-09 06:20 | NUR ---
ASSISTED PT FOR AM,SKIN CARE ON BED.PT NOTED TO HAVE LARGE BM BUT IT'S SOFT STOOL.NO DISTRESS NOTED IN THE SHIFT,PT ALSO REQUESTED TO HAVE BLANKETS X4.PT TOLERATED WELL WITH TX AND ASSISTANCE.
[2017-12-09 06:38] LABS: CREATININE 0.6 mg/dL (0.6-1.3); MAGNESIUM 2.7 mg/dL (1.8-2.4); POTASSIUM 3.4 mmol/L (3.5-5.1)
--- NOTE | 2017-12-09 07:49 | NUR ---
Received patient sleeping. No immediate s/s of SOB, pain, distress or discomfort
--- NOTE | 2017-12-09 09:00 | NUR ---
Present for debridement by Karlee Webster. Pt tolerated procedure well. After procedure, sacral wound was packed with soaked NS gauze and cover with abdominal pad and secured with paper tape. Right buttocks wound placed hydrogel and placed Mepilex, left buttock pressure injury place NS soaked gauze and cover with Mepilex Addendum: 12/09/17 at 1457 by JOELLE LEONARD RN Pt was also repositioned and changed
[2017-12-09] MEDS ORDERED: POTASSIUM CHLORIDE 20 MEQ TAB.PRT.SR PO ONE (09:45)
[2017-12-09] MEDS: LACTOBACILLUS RHAMNOSUS GG 1 EACH CAPSULE PO SCH ×2 (09:47→20:49)
[2017-12-09] MEDS: FERROUS SULFATE 325 MG TABEC PO SCH (09:47)
[2017-12-09] MEDS: AMLODIPINE 5 MG TABLET PO SCH ×2 (09:47→20:49)
[2017-12-09] MEDS: MULTIVIT, IRON, MIN NO. 8, FA TABLET PO SCH (09:47)
[2017-12-09] MEDS: ASCORBIC ACID 500 MG TABLET PO SCH (09:47)
[2017-12-09] MEDS: DOCUSATE SODIUM 100 MG CAPSULE PO SCH ×2 (09:47→20:49)
[2017-12-09 09:48] VITALS: BP 118/65
[2017-12-09] MEDS: SODIUM HYPOCHLORITE 0.125% 473 ML BOTTLE TP SCH ×2 (09:48→20:52)
[2017-12-09 09:49] LABS: BASOPHILS % (AUTO) 0.2 % (0.0-2.0); EOSINOPHILS # (AUTO) 0.1 K/uL (0.0-0.7); EOSINOPHILS % (AUTO) 0.4 % (0.0-7.0); HEMATOCRIT 24.6 % (31.2-41.9); HEMOGLOBIN 7.9 g/dL (10.9-14.3); LYMPHOCYTES # (AUTO) 0.5 K/uL (20.0-40.0); LYMPHOCYTES % (AUTO) 2.5 % (20.5-51.5); MEAN CORPUSCULAR HEMOGLOBIN 25.4 uug (24.7-32.8); MEAN CORPUSCULAR HGB CONC 32 g/dL (32.3-35.6); MEAN CORPUSCULAR VOLUME 79.4 fL (75.5-95.3); MONOCYTES # (AUTO) 0.3 K/uL (2.0-10.0); MONOCYTES % (AUTO) 1.6 % (0.0-11.0); NEUTROPHILS # (AUTO) 20.2 K/uL (1.8-8.9); NEUTROPHILS % (AUTO) 95.3 % (38.5-71.5); PLATELET COUNT (AUTO) 276 K/uL (179-408); WHITE BLOOD COUNT (AUTO) 21.2 K/uL (3.8-11.8)
[2017-12-09] MEDS: IV NS 1000 ML 1,000 ML IV PRN ×2 (10:24→20:52)
[2017-12-09 11:32] VITALS: BP 124/62
[2017-12-09] MEDS: HYDROCODONE/APAP 5-325MG TABLET PO PRN ×2 (11:49→17:39)
[2017-12-09 15:41] VITALS: BP 116/60
[2017-12-09 19:56] VITALS: BP 123/66
--- NOTE | 2017-12-09 20:00 | NUR ---
Observed to be resting in bed at this time with no s/s of acute distress noted. Pt temperature 99.7 cooling measures implemented Tele monitor sinus tachy with hr at 118 Safe environment provided at all times. Call light within reach. Will continue to monitor closely.
[2017-12-09] MEDS: SENNOSIDES 1 TABLET PO SCH (20:50)
[2017-12-09] MEDS: ACETAMINOPHEN 325 MG TABLET PO PRN (22:03)
[2017-12-10] VITALS: BP 118/56
[2017-12-10 04:00] VITALS: BP 108/63
[2017-12-10] MEDS: PIPERACILLIN/TAZOBACTAM/D5W 50 ML IV SCH ×3 (05:09→17:04)
[2017-12-10] MEDS: POLYVINYL ALCOHOL OPHT DROPS 15 ML BOTTLE EACHEYE SCH ×3 (05:10→17:04)
[2017-12-10] MEDS: PANTOPRAZOLE SODIUM 40 MG TABLET.DR PO SCH (06:06)
[2017-12-10] MEDS: HYDROCODONE/APAP 5-325MG TABLET PO PRN (06:06)
[2017-12-10] MEDS: LEVOTHYROXINE SODIUM 112 MCG TABLET PO SCH (06:06)
[2017-12-10 06:45] LABS: BASOPHILS % (AUTO) 0.1 % (0.0-2.0); EOSINOPHILS # (AUTO) 0.1 K/uL (0.0-0.7); EOSINOPHILS % (AUTO) 0.4 % (0.0-7.0); HEMATOCRIT 24.6 % (31.2-41.9); HEMOGLOBIN 7.9 g/dL (10.9-14.3); LYMPHOCYTES % (AUTO) 4.6 % (20.5-51.5); MEAN CORPUSCULAR HEMOGLOBIN 25.1 uug (24.7-32.8); MEAN CORPUSCULAR HGB CONC 32 g/dL (32.3-35.6); MEAN CORPUSCULAR VOLUME 78.3 fL (75.5-95.3); MONOCYTES # (AUTO) 0.7 K/uL (2.0-10.0); NEUTROPHILS # (AUTO) 20.2 K/uL (1.8-8.9); NEUTROPHILS % (AUTO) 91.9 % (38.5-71.5); PLATELET COUNT (AUTO) 313 K/uL (179-408); RED BLOOD CELL COUNT(AUTO) 3.15 MIL/uL (3.63-4.92); WHITE BLOOD COUNT (AUTO) 22.1 K/uL (3.8-11.8)
--- NOTE | 2017-12-10 06:57 | NUR ---
Wound care done. Frequent repositioning. All needs met. No s/s of acute distress noted at this time. Tele sinus tachy with HR at 110.
[2017-12-10 06:58] LABS: CARBON DIOXIDE 21 mmol/L (21-32); CHLORIDE 107 mmol/L (98-107); CREATININE 0.4 mg/dL (0.6-1.3); GLUCOSE 96 mg/dL (74-106); POTASSIUM 3.7 mmol/L (3.5-5.1); UREA NITROGEN, BLOOD 6 mg/dL (7-18)
--- NOTE | 2017-12-10 07:45 | NUR ---
Received pt sleeping in a semi fowlers position on her right side. No immediate s/s of SOB, pain, distress or discomfort
[2017-12-10 08:20] VITALS: BP 113/69
[2017-12-10] MEDS: MULTIVIT, IRON, MIN NO. 8, FA TABLET PO SCH (08:33)
[2017-12-10] MEDS: ASCORBIC ACID 500 MG TABLET PO SCH (08:33)
[2017-12-10] MEDS: AMLODIPINE 5 MG TABLET PO SCH ×2 (08:33→20:50)
[2017-12-10] MEDS: LACTOBACILLUS RHAMNOSUS GG 1 EACH CAPSULE PO SCH ×2 (08:33→20:49)
[2017-12-10] MEDS: FERROUS SULFATE 325 MG TABEC PO SCH (08:33)
[2017-12-10] MEDS: SODIUM HYPOCHLORITE 0.125% 473 ML BOTTLE TP SCH ×2 (08:34→20:49)
[2017-12-10] MEDS: DOCUSATE SODIUM 100 MG CAPSULE PO SCH ×2 (08:34→20:49)
--- NOTE | 2017-12-10 10:00 | NUR ---
New suprapubic cath 18F in place by candle cutter.
[2017-12-10] MEDS: IV NS 1000 ML 1,000 ML IV PRN (10:43)
--- NOTE | 2017-12-10 10:50 | NUR ---
Pt was given a bed bath by METAL STAMPER. Wound dressing changes and wound care done as ordered.
[2017-12-10 11:23] VITALS: BP 135/78
[2017-12-10] MEDS: ONDANSETRON 4 MG/2 ML VIAL IV PRN ×2 (12:13→18:24)
--- NOTE | 2017-12-10 12:19 | NUR ---
Informed by rod hanger that pt was experiencing vomiting. Immediately went to the pt.'s room and noted a small about of food particles on her towel. Niko was given Addendum: 12/10/17 at 1221 by JOELLE LEONARD RN Pt states that she will hold off on lunch for right now
[2017-12-10 16:46] VITALS: BP 128/76
[2017-12-10 19:00] VITALS: BP 122/74
[2017-12-10] MEDS: SENNOSIDES 1 TABLET PO SCH (20:49)
[2017-12-11] VITALS: BP 119/68
[2017-12-11] MEDS: PIPERACILLIN/TAZOBACTAM/D5W 50 ML IV SCH ×4 (00:01→17:18)
[2017-12-11] MEDS: POLYVINYL ALCOHOL OPHT DROPS 15 ML BOTTLE EACHEYE SCH ×4 (00:01→17:12)
[2017-12-11] MEDS: IV NS 1000 ML 1,000 ML IV PRN (00:02)
[2017-12-11] MEDS: ONDANSETRON 4 MG/2 ML VIAL IV PRN ×2 (00:11→06:21)
[2017-12-11 04:00] VITALS: BP 119/68
--- NOTE | 2017-12-11 06:00 | NUR ---
Wound care done. Frequent repositioning provided. All needs attended to. No s/s of acute distress noted at this time. Safe environment implemented. Call light within reach.
[2017-12-11] MEDS: LEVOTHYROXINE SODIUM 112 MCG TABLET PO SCH (06:16)
[2017-12-11] MEDS: PANTOPRAZOLE SODIUM 40 MG TABLET.DR PO SCH (06:16)
[2017-12-11 06:36] LABS: CARBON DIOXIDE 18 mmol/L (21-32); CHLORIDE 104 mmol/L (98-107); CREATININE 0.4 mg/dL (0.6-1.3); GLUCOSE 77 mg/dL (74-106); POTASSIUM 3.7 mmol/L (3.5-5.1); UREA NITROGEN, BLOOD 5 mg/dL (7-18)
[2017-12-11 07:31] LABS: BASOPHILS % (AUTO) 0.2 % (0.0-2.0); EOSINOPHILS # (AUTO) 0.1 K/uL (0.0-0.7); EOSINOPHILS % (AUTO) 0.6 % (0.0-7.0); HEMATOCRIT 23.4 % (31.2-41.9); HEMOGLOBIN 7.6 g/dL (10.9-14.3); LYMPHOCYTES # (AUTO) 0.9 K/uL (20.0-40.0); LYMPHOCYTES % (AUTO) 4.5 % (20.5-51.5); MEAN CORPUSCULAR HEMOGLOBIN 25.4 uug (24.7-32.8); MEAN CORPUSCULAR HGB CONC 32 g/dL (32.3-35.6); MEAN CORPUSCULAR VOLUME 78.2 fL (75.5-95.3); MONOCYTES % (AUTO) 4.8 % (0.0-11.0); NEUTROPHILS # (AUTO) 18.2 K/uL (1.8-8.9); NEUTROPHILS % (AUTO) 89.9 % (38.5-71.5); PLATELET COUNT (AUTO) 329 K/uL (179-408); RED BLOOD CELL COUNT(AUTO) 2.99 MIL/uL (3.63-4.92); WHITE BLOOD COUNT (AUTO) 20.2 K/uL (3.8-11.8)
--- NOTE | 2017-12-11 08:04 | NUR ---
WOUND CARE CONSULT WOUND CARE RECEIVED CONSULT FOR SACRAL/BUTTOCKS DECUBITUS. WOUND CARE WILL DEFER CONSULT AND ALL TREATMENT PLANS TO SURGICAL TEAM WHO ARE CURRENTLY FOLLOWING. PATIENT WITH ISAEL AT 14, ALL PRESSURE ULCER PREVENTION MEASURES ARE NOTED TO BE IN PLACE. WILL SEE PRN.
[2017-12-11] MEDS: HYDROCODONE/APAP 5-325MG TABLET PO PRN (09:33)
[2017-12-11] MEDS: MULTIVIT, IRON, MIN NO. 8, FA TABLET PO SCH (09:34)
[2017-12-11] MEDS: AMLODIPINE 5 MG TABLET PO SCH ×2 (09:34→20:33)
[2017-12-11] MEDS: FERROUS SULFATE 325 MG TABEC PO SCH (09:34)
[2017-12-11] MEDS: LACTOBACILLUS RHAMNOSUS GG 1 EACH CAPSULE PO SCH ×2 (09:34→20:26)
[2017-12-11] MEDS: ASCORBIC ACID 500 MG TABLET PO SCH (09:35)
[2017-12-11] MEDS: DOCUSATE SODIUM 100 MG CAPSULE PO SCH ×2 (09:35→20:26)
[2017-12-11] MEDS: SODIUM HYPOCHLORITE 0.125% 473 ML BOTTLE TP SCH ×2 (09:37→20:36)
[2017-12-11 11:04] VITALS: BP 129/75
[2017-12-11 15:25] VITALS: BP 132/68
--- NOTE | 2017-12-11 17:03 | NUR ---
Pt reassignment and full SBAR report given to LINDA Cuellar.
--- NOTE | 2017-12-11 19:00 | NUR ---
Sleeping during initial rounds. No s/s of pain/discomforts. Supra pubic cath intact and patent, draining QS clear urine output. Safety measures and fall precaution maintained. Continue care as planned.
[2017-12-11] MEDS: ONDANSETRON ODT 4 MG TAB.RAPDIS SL PRN (20:26)
[2017-12-11] MEDS: SENNOSIDES 1 TABLET PO SCH (20:26)
[2017-12-11 20:40] VITALS: BP 115/69
[2017-12-12] MEDS: PIPERACILLIN/TAZOBACTAM/D5W 50 ML IV SCH ×4 (00:03→17:08)
[2017-12-12] MEDS: POLYVINYL ALCOHOL OPHT DROPS 15 ML BOTTLE EACHEYE SCH ×4 (00:03→17:18)
[2017-12-12 04:32] VITALS: BP 125/68
[2017-12-12] MEDS: PANTOPRAZOLE SODIUM 40 MG TABLET.DR PO SCH (06:36)
[2017-12-12] MEDS: LEVOTHYROXINE SODIUM 112 MCG TABLET PO SCH (06:36)
--- NOTE | 2017-12-12 06:41 | NUR ---
Shift End Report: VS stable. Slept well. No complaint presented. No s/s of respiratory distress. Wound care done. Tolerated procedure well. No s/s of adverse reaction noted from antibiotic IV. All needs attended and met. No significant event reported all night. Continue current plan of care.
[2017-12-12 06:43] LABS: CARBON DIOXIDE 24 mmol/L (21-32); CHLORIDE 104 mmol/L (98-107); CREATININE 0.5 mg/dL (0.6-1.3); GLUCOSE 81 mg/dL (74-106); POTASSIUM 3.3 mmol/L (3.5-5.1); UREA NITROGEN, BLOOD 4 mg/dL (7-18)
[2017-12-12 07:14] LABS: BASOPHILS % (AUTO) 0.2 % (0.0-2.0); EOSINOPHILS # (AUTO) 0.1 K/uL (0.0-0.7); EOSINOPHILS % (AUTO) 0.9 % (0.0-7.0); HEMATOCRIT 24.2 % (31.2-41.9); HEMOGLOBIN 7.8 g/dL (10.9-14.3); LYMPHOCYTES # (AUTO) 1.3 K/uL (20.0-40.0); LYMPHOCYTES % (AUTO) 8.4 % (20.5-51.5); MEAN CORPUSCULAR HGB CONC 32 g/dL (32.3-35.6); MEAN CORPUSCULAR VOLUME 77.3 fL (75.5-95.3); MONOCYTES # (AUTO) 1.3 K/uL (2.0-10.0); MONOCYTES % (AUTO) 8.7 % (0.0-11.0); NEUTROPHILS # (AUTO) 12.5 K/uL (1.8-8.9); NEUTROPHILS % (AUTO) 81.8 % (38.5-71.5); PLATELET COUNT (AUTO) 374 K/uL (179-408); RED BLOOD CELL COUNT(AUTO) 3.13 MIL/uL (3.63-4.92); WHITE BLOOD COUNT (AUTO) 15.2 K/uL (3.8-11.8)
[2017-12-12] MEDS: LACTOBACILLUS RHAMNOSUS GG 1 EACH CAPSULE PO SCH ×2 (08:46→20:08)
[2017-12-12] MEDS: DOCUSATE SODIUM 100 MG CAPSULE PO SCH ×2 (08:46→20:07)
[2017-12-12] MEDS: ASCORBIC ACID 500 MG TABLET PO SCH (08:46)
[2017-12-12] MEDS: MULTIVIT, IRON, MIN NO. 8, FA TABLET PO SCH (08:46)
[2017-12-12] MEDS: FERROUS SULFATE 325 MG TABEC PO SCH (08:46)
[2017-12-12] MEDS: SODIUM HYPOCHLORITE 0.125% 473 ML BOTTLE TP SCH ×2 (08:47→20:18)
[2017-12-12] MEDS: AMLODIPINE 5 MG TABLET PO SCH ×2 (08:51→20:08)
[2017-12-12 11:02] LABS: EOSINOPHILS % (MANUAL) 2 % (0-8); LYMPHOCYTES % (MANUAL) 4 % (20-40); MONOCYTES % (MANUAL) 2 % (2-10); NEUTROPHILS % (MANUAL) 92 % (42-75)
[2017-12-12 12:00] VITALS: BP 115/68
[2017-12-12] MEDS ORDERED: POTASSIUM CHLORIDE 20 MEQ TAB.PRT.SR PO ONE (14:00)
--- NOTE | 2017-12-12 14:02 | NUR ---
Pt reassignment and full SBAR report given to LINDA Galindo.
[2017-12-12 15:51] VITALS: BP 117/67
--- NOTE | 2017-12-12 19:20 | NUR ---
Received patient lying in bed. AAOX3. In no acute distress. Denies any pain or SOB. Midline on right UA intact and patent. Suprapubic catheter intact and draining. Safety measure initiated and call ríos within reach.
[2017-12-12 20:00] VITALS: BP 120/67
[2017-12-12] MEDS: SENNOSIDES 1 TABLET PO SCH (20:08)
[2017-12-12] MEDS: ONDANSETRON ODT 4 MG TAB.RAPDIS SL PRN (23:40)
[2017-12-13] VITALS (12 sets, daily range): BP systolic 108–129; BP diastolic 57–79
[2017-12-13] MEDS: POLYVINYL ALCOHOL OPHT DROPS 15 ML BOTTLE EACHEYE SCH ×5 (00:25→23:46)
[2017-12-13] MEDS: PIPERACILLIN/TAZOBACTAM/D5W 50 ML IV SCH ×5 (00:26→23:45)
[2017-12-13] MEDS: LEVOTHYROXINE SODIUM 112 MCG TABLET PO SCH (06:03)
[2017-12-13] MEDS: PANTOPRAZOLE SODIUM 40 MG TABLET.DR PO SCH (06:03)
--- NOTE | 2017-12-13 06:04 | NUR ---
AAOX3. No complain of any pain or SOB. VS WNL. Midline on right UA intact and patent. Suprapubic catheter intact and draining via gravity. Wound care rendered. No adverse reaction from IV ABX. Safety measure maintained and call ríos within reach.
[2017-12-13 06:22] LABS: BASOPHILS # (AUTO) 0.1 K/uL (0.0-8.0); BASOPHILS % (AUTO) 0.5 % (0.0-2.0); EOSINOPHILS # (AUTO) 0.1 K/uL (0.0-0.7); EOSINOPHILS % (AUTO) 0.9 % (0.0-7.0); LYMPHOCYTES # (AUTO) 1.3 K/uL (20.0-40.0); LYMPHOCYTES % (AUTO) 8.7 % (20.5-51.5); MEAN CORPUSCULAR HEMOGLOBIN 25.1 uug (24.7-32.8); MEAN CORPUSCULAR HGB CONC 32 g/dL (32.3-35.6); MEAN CORPUSCULAR VOLUME 78.4 fL (75.5-95.3); MONOCYTES # (AUTO) 1.4 K/uL (2.0-10.0); MONOCYTES % (AUTO) 9.4 % (0.0-11.0); NEUTROPHILS # (AUTO) 11.7 K/uL (1.8-8.9); NEUTROPHILS % (AUTO) 80.5 % (38.5-71.5); PLATELET COUNT (AUTO) 489 K/uL (179-408); RED BLOOD CELL COUNT(AUTO) 2.81 MIL/uL (3.63-4.92); WHITE BLOOD COUNT (AUTO) 14.5 K/uL (3.8-11.8)
[2017-12-13 06:28] LABS: HEMOGLOBIN 7.1 g/dL (10.9-14.3)
--- NOTE | 2017-12-13 06:30 | NUR ---
TELEPHONE CALL FROM LAB[facility] AND REPORTED Hgb LEVEL OF 7.1. DR. MORALES MADE AWARE. AWAITING FOR REPLY.
--- NOTE | 2017-12-13 06:40 | NUR ---
DR. MORALES WITH ORDER TO DIRECT LAB RESULT TO ROUNDING DOCTOR THIS AM. WILL NOTIFY DOCTOR SAAD AND HAVE DAY SHIFT NURSE FOLLOW UP.
--- NOTE | 2017-12-13 07:15 | NUR ---
RECEIVED PATIENT ON BED, AWAKE. AAOX3. NO ACUTE DISTRESS NOTED. PATIENT IS BLIND, PARAPLEGIC. ON 1ST STEP MATTRESS. WOUND DRESSINGS STILL CLEAN AND DRY. W/ MIDLINE ON THE PERLA, INTACT AND PATENT. SUPRAPUBIC CATHETER IN PLACE DRAINING CLEAR YELLOW URINE. COMFORT MEASURES PROVIDED. CALL LIGHT WITHIN REACH. WILL CONTINUE TO MONITOR CLOSLEY.
[2017-12-13] MEDS: MULTIVIT, IRON, MIN NO. 8, FA TABLET PO SCH (08:29)
[2017-12-13] MEDS: LACTOBACILLUS RHAMNOSUS GG 1 EACH CAPSULE PO SCH ×2 (08:29→20:07)
[2017-12-13] MEDS: FERROUS SULFATE 325 MG TABEC PO SCH (08:29)
[2017-12-13] MEDS: ASCORBIC ACID 500 MG TABLET PO SCH (08:32)
[2017-12-13] MEDS: DOCUSATE SODIUM 100 MG CAPSULE PO SCH ×2 (08:32→20:07)
[2017-12-13] MEDS: AMLODIPINE 5 MG TABLET PO SCH ×2 (08:32→20:08)
[2017-12-13] MEDS: SODIUM HYPOCHLORITE 0.125% 473 ML BOTTLE TP SCH ×2 (08:32→20:10)
[2017-12-13 08:56] LABS: ALANINE AMINOTRANSFERASE 10 U/L (14-59); ALKALINE PHOSPHATASE 111 U/L (50-136); ASPARTATE AMINOTRANSFERASE 12 U/L (15-37); BILIRUBIN,TOTAL 0.3 mg/dL (0.2-1.0); CARBON DIOXIDE 26 mmol/L (21-32); CHLORIDE 105 mmol/L (98-107); CREATININE 0.4 mg/dL (0.6-1.3); GLUCOSE 90 mg/dL (74-106); MAGNESIUM 1.6 mg/dL (1.8-2.4); POTASSIUM 3.5 mmol/L (3.5-5.1); TOTAL PROTEIN, SERUM 6.5 g/dL (6.4-8.2); UREA NITROGEN, BLOOD 3 mg/dL (7-18)
[2017-12-13 09:01] LABS: LYMPHOCYTES % (MANUAL) 10 % (20-40); MONOCYTES % (MANUAL) 10 % (2-10); NEUTROPHILS % (MANUAL) 80 % (42-75)
[2017-12-13] MEDS ORDERED: POTASSIUM CHLORIDE 20 MEQ POWDER PACKET PO ONE (10:15)
--- NOTE | 2017-12-13 10:30 | NUR ---
CRITICAL LAB VALUE REPORTED TO DR. RUIZ OF ALBUMIN 1.5. W/ ORDERS FOR NUTRITIONAL CONSULT. ORDERS CARRIED OUT.
[2017-12-13 10:53] LABS: IRON, SERUM 17 ug/dL (50-175)
[2017-12-13] MEDS: MAGNESIUM SULFATE/D5W 100 ML IV SCH ×2 (10:54→11:58)
--- NOTE | 2017-12-13 12:00 | NUR ---
SUPRAPUBIC CATH WAS LEAKING. FLUSHED CATHETER W/ NS AND CHANGED DRESSING ON SITE. WOUND DRESSING ON SACRAL AREA ALSO CHANGED. BMX1, LARGE. WILL CONTINUE TO MONITOR CLOSELY.
--- NOTE | 2017-12-13 18:52 | NUR ---
PATIENT IN BED. STABLE CONDITION. MIDLINE ON PERLA STILL INTACT AND PATENT. WOUND TREATMENT AND DRESSING CHANGE DONE, KEPT CLEAN AND DRY. SUPRAPUBIC CATH IN PLACE, BUT TENDS TO LEAK. CHANGED DRESSING NEEDED AND REPOSITIONED PATIENT ON LEFT SIDE TO PREVENT LEAKAGE. ALL NEEDS ATTENDED AND ANTICIPATED. CALL LIGHT WITHIN REACH WILL CONTINUE TO MONITOR CLOSELY.
--- NOTE | 2017-12-13 19:20 | NUR ---
Received patient lying in bed. AAOX3. In no acute distress. Denies any pain or SOB at this time. Midline on right UA intact and patent. Suprapubic catheter intact and draining. Safety measure initiated and call ríos within reach.
[2017-12-13] MEDS: SENNOSIDES 1 TABLET PO SCH (20:07)
--- NOTE | 2017-12-13 21:05 | NUR ---
Started 1 unit of packed RBC transfusion via midline. VS WNL. Patient denies any SOB or pain. Will continue to monitor VS.
--- NOTE | 2017-12-13 23:43 | NUR ---
Completed 1 unit of pRBC. No adverse effect noted. Transfusion tolerated well. In no acute distress. VS WNL.
[2017-12-14 01:24] LABS: *OCCULT BLOOD STOOL NEGATIVE (NEGATIVE)
[2017-12-14 03:34] VITALS: BP 122/69
[2017-12-14] MEDS: PIPERACILLIN/TAZOBACTAM/D5W 50 ML IV SCH ×4 (05:15→23:14)
[2017-12-14] MEDS: POLYVINYL ALCOHOL OPHT DROPS 15 ML BOTTLE EACHEYE SCH ×4 (05:15→23:14)
--- NOTE | 2017-12-14 06:02 | NUR ---
AAOX3. VS WNL. O2 sat at 99% on RA. Midline on right UA intact and patent. Suprapubic catheter intact and draining via gravity. No leaking noted on site. Wound care rendered. No adverse reaction from IV ABX. Safety measure maintained and call ríos within reach.
[2017-12-14] MEDS: LEVOTHYROXINE SODIUM 112 MCG TABLET PO SCH (06:07)
[2017-12-14] MEDS: PANTOPRAZOLE SODIUM 40 MG TABLET.DR PO SCH (06:07)
[2017-12-14 06:26] LABS: BASOPHILS # (AUTO) 0.1 K/uL (0.0-8.0); BASOPHILS % (AUTO) 0.4 % (0.0-2.0); EOSINOPHILS # (AUTO) 0.1 K/uL (0.0-0.7); EOSINOPHILS % (AUTO) 0.9 % (0.0-7.0); HEMATOCRIT 26.8 % (31.2-41.9); HEMOGLOBIN 8.7 g/dL (10.9-14.3); LYMPHOCYTES # (AUTO) 1.5 K/uL (20.0-40.0); LYMPHOCYTES % (AUTO) 10.1 % (20.5-51.5); MEAN CORPUSCULAR HGB CONC 33 g/dL (32.3-35.6); MEAN CORPUSCULAR VOLUME 80.2 fL (75.5-95.3); MONOCYTES # (AUTO) 1.5 K/uL (2.0-10.0); NEUTROPHILS # (AUTO) 11.5 K/uL (1.8-8.9); NEUTROPHILS % (AUTO) 78.6 % (38.5-71.5); PLATELET COUNT (AUTO) 465 K/uL (179-408); RED BLOOD CELL COUNT(AUTO) 3.34 MIL/uL (3.63-4.92); WHITE BLOOD COUNT (AUTO) 14.7 K/uL (3.8-11.8)
[2017-12-14 06:36] LABS: BILIRUBIN,TOTAL 0.2 mg/dL (0.2-1.0); CREATININE 0.6 mg/dL (0.6-1.3); POTASSIUM 3.7 mmol/L (3.5-5.1); TOTAL PROTEIN, SERUM 6.6 g/dL (6.4-8.2)
--- NOTE | 2017-12-14 06:48 | NUR ---
TC from lab for critical lab value of albumin 1.4. Albumin yesterday was 1.5 MD already aware of low albumin. Patient for nutritional consult.
[2017-12-14 07:25] LABS: THYROID STIMULATING HORMONE 5.081 mIU/mL (0.358-3.740)
[2017-12-14] MEDS: ASCORBIC ACID 500 MG TABLET PO SCH (09:14)
[2017-12-14] MEDS: LACTOBACILLUS RHAMNOSUS GG 1 EACH CAPSULE PO SCH ×2 (09:14→20:09)
[2017-12-14] MEDS: MULTIVIT, IRON, MIN NO. 8, FA TABLET PO SCH (09:14)
[2017-12-14] MEDS: ZINC SULFATE 220 MG CAPSULE PO SCH (09:14)
[2017-12-14] MEDS: FERROUS SULFATE 325 MG TABEC PO SCH (09:15)
[2017-12-14] MEDS: AMLODIPINE 5 MG TABLET PO SCH ×2 (09:15→20:09)
[2017-12-14] MEDS: DOCUSATE SODIUM 100 MG CAPSULE PO SCH ×2 (09:15→20:09)
[2017-12-14] MEDS: SODIUM HYPOCHLORITE 0.125% 473 ML BOTTLE TP SCH ×2 (09:16→20:17)
[2017-12-14 10:06] LABS: EOSINOPHILS % (MANUAL) 1 % (0-8); LYMPHOCYTES % (MANUAL) 15 % (20-40); MONOCYTES % (MANUAL) 9 % (2-10); NEUTROPHILS % (MANUAL) 75 % (42-75)
[2017-12-14 11:47] VITALS: BP 121/66
[2017-12-14 12:30] LABS: *BILIRUBIN,URIN NEGATIVE (NEGATIVE); *BLOOD, URINE Trace-intact (NEGATIVE); *CLARITY,URINE CLEAR (CLEAR); *COLOR,URINE YELLOW (YELLOW); *KETONES,URINE NEGATIVE (NEGATIVE); *PROTEIN,URINE 1+ (NEGATIVE); *UROBILINOGEN,URINE 0.2 E.U./dl (NORMAL); LEUKOCYTE ESTERASE ,URINE TRACE (NEGATIVE); NITRITE, URINE NEGATIVE (NEGATIVE); PH,URINE 7.5 (5.0-8.0); UGLUCOSE NEGATIVE (NEGATIVE)
[2017-12-14 12:39] LABS: BACTERIA,URINE FEW /HPF (NONE SEEN); SQUAMOUS EPITHELIAL CELL,UR FEW /HPF (NONE SEEN); WBC,URINE 0-3 /HPF (0-3)
[2017-12-14 16:00] VITALS: BP 129/69
--- NOTE | 2017-12-14 17:59 | NUR ---
Nurse Notes; patient alert and oriented x 4, able to make known remained stable throughout the shift with no acute changes noted. no SOB or distress. assessed for pain, denies any pain or discomforts. Skin assessed, wound care treatment done as ordered- tolerated well. On first step mattress, turned and repositioned. heels elevated with pillows. IV site patent and intact. IV antibiotics given- tolerated well. no adverse reactions noted. All due medications given- tolerated well. All needs were attended and anticipated. call light answered promptly. safety precautions observed. hourly rounding done, call light and telephone within reach at all times, bilateral half side rail up and bed brake son for safety. Will endorse accordingly to incoming shift for continuity of care.
[2017-12-14 19:18] VITALS: BP 125/73
--- NOTE | 2017-12-14 19:20 | NUR ---
Received patient lying in bed. Remains AAOX3. In no acute distress. Very pleasant. Denies any pain or SOB. Midline on right UA intact and patent. Suprapubic catheter intact and draining. Safety measure initiated and call ríos within reach.
[2017-12-14] MEDS: SENNOSIDES 1 TABLET PO SCH (20:09)
[2017-12-14] MEDS: ACETAMINOPHEN 325 MG TABLET PO PRN (21:13)
--- NOTE | 2017-12-14 21:23 | NUR ---
Patient temp. 99.4 per STILL TENDER report. recheck temp. was 99.7. Tylenol 650mg po given. Will recheck temp. later.
--- NOTE | 2017-12-14 22:30 | NUR ---
Cooling measures was provided. recheck temp. now 98.9. Continue with cooling measures. Patient in no acute distress. Denies any pain or SOB.
--- NOTE | 2017-12-15 01:30 | NUR ---
Received pt sleeping in bed. No acute distress noted. Suprapubic catheter noted, intact and draining well. Right upper arm midline, patent and intact. Safety measures maintained. Call light and personal belongings within reach. Will continue to monitor.
[2017-12-15 03:27] VITALS: BP 122/73
[2017-12-15] MEDS: PIPERACILLIN/TAZOBACTAM/D5W 50 ML IV SCH ×3 (05:00→17:00)
[2017-12-15] MEDS: POLYVINYL ALCOHOL OPHT DROPS 15 ML BOTTLE EACHEYE SCH ×3 (05:00→17:00)
--- NOTE | 2017-12-15 05:57 | NUR ---
Pt slept comfortably at night. All needs attended to promptly. Dressing changed at 0500 as per pt's request. Had small BM. Will continue to monitor.
[2017-12-15] MEDS: PANTOPRAZOLE SODIUM 40 MG TABLET.DR PO SCH (06:15)
[2017-12-15] MEDS: LEVOTHYROXINE SODIUM 112 MCG TABLET PO SCH (06:15)
[2017-12-15] MEDS: ONDANSETRON ODT 4 MG TAB.RAPDIS SL PRN (06:15)
[2017-12-15 06:16] LABS: CARBON DIOXIDE 26 mmol/L (21-32); CHLORIDE 105 mmol/L (98-107); CREATININE 0.5 mg/dL (0.6-1.3); GLUCOSE 107 mg/dL (74-106); POTASSIUM 4.7 mmol/L (3.5-5.1); UREA NITROGEN, BLOOD 6 mg/dL (7-18)
--- NOTE | 2017-12-15 06:18 | NUR ---
Pt c/o nausea, no emesis present. Zofran SL given. Will continue to monitor.
[2017-12-15 06:23] LABS: BASOPHILS # (AUTO) 0.1 K/uL (0.0-8.0); BASOPHILS % (AUTO) 0.5 % (0.0-2.0); EOSINOPHILS # (AUTO) 0.2 K/uL (0.0-0.7); EOSINOPHILS % (AUTO) 0.9 % (0.0-7.0); HEMATOCRIT 28.3 % (31.2-41.9); HEMOGLOBIN 9.1 g/dL (10.9-14.3); LYMPHOCYTES # (AUTO) 1.5 K/uL (20.0-40.0); LYMPHOCYTES % (AUTO) 8.9 % (20.5-51.5); MEAN CORPUSCULAR HEMOGLOBIN 26.2 uug (24.7-32.8); MEAN CORPUSCULAR HGB CONC 32 g/dL (32.3-35.6); MEAN CORPUSCULAR VOLUME 81.2 fL (75.5-95.3); MONOCYTES # (AUTO) 1.4 K/uL (2.0-10.0); MONOCYTES % (AUTO) 8.5 % (0.0-11.0); NEUTROPHILS # (AUTO) 13.5 K/uL (1.8-8.9); NEUTROPHILS % (AUTO) 81.2 % (38.5-71.5); PLATELET COUNT (AUTO) 551 K/uL (179-408); RED BLOOD CELL COUNT(AUTO) 3.49 MIL/uL (3.63-4.92); WHITE BLOOD COUNT (AUTO) 16.6 K/uL (3.8-11.8)
[2017-12-15 08:46] LABS: BAND % (MANUAL) 5 % (0-10); EOSINOPHILS % (MANUAL) 1 % (0-8); LYMPHOCYTES % (MANUAL) 11 % (20-40); METAMYELOCYTES % 2 % (0-1); MONOCYTES % (MANUAL) 8 % (2-10); MYELOCYTES % 4 % (0-0); NEUTROPHILS % (MANUAL) 69 % (42-75)
[2017-12-15] MEDS: ZINC SULFATE 220 MG CAPSULE PO SCH (08:55)
[2017-12-15] MEDS: DOCUSATE SODIUM 100 MG CAPSULE PO SCH ×2 (08:56→20:32)
[2017-12-15] MEDS: LACTOBACILLUS RHAMNOSUS GG 1 EACH CAPSULE PO SCH ×2 (08:56→20:32)
[2017-12-15] MEDS: FERROUS SULFATE 325 MG TABEC PO SCH (08:56)
[2017-12-15] MEDS: MULTIVIT, IRON, MIN NO. 8, FA TABLET PO SCH (08:56)
[2017-12-15] MEDS: ASCORBIC ACID 500 MG TABLET PO SCH (08:56)
[2017-12-15] MEDS: SODIUM HYPOCHLORITE 0.125% 473 ML BOTTLE TP SCH ×2 (08:57→20:36)
[2017-12-15] MEDS: Z GUARD REMEDY PASTE 57 GM TUBE TOP PRN (08:58)
[2017-12-15] MEDS: PROTEIN SUPPLEMENT (PROSTAT) 30 ML LIQUID PO SCH ×2 (08:59→17:00)
[2017-12-15] MEDS: AMLODIPINE 5 MG TABLET PO SCH ×2 (09:01→21:00)
[2017-12-15 10:00] VITALS: BP 139/82
--- NOTE | 2017-12-15 14:00 | NUR ---
WOUND TREATMENT/DRESSING ON LEFT AND RIGHT BUTTOCKS AND SACRAL/LOWER BACK DONE ORDERED. PT TOLERATED PROCEDURE WELL, PT AFEBRILE, NO S/S OF INFECTION/COMPLICATION. WILL CONTINUE TO MONITOR.
[2017-12-15] MEDS: SOD FERRIC GLUC COMPLX/SUCROSE 125 MG in IV NORMAL SALINE 100 ML IV SCH (14:13)
[2017-12-15 15:29] VITALS: BP 136/77
--- NOTE | 2017-12-15 18:12 | NUR ---
PT ALERT, IN NO DISTRESS. IV ANTIBIOTICS/MEDICATIONS ADMINISTERED ORDERED, NO ADVERSE REACTION NOTED, NO C/O OF NAUSEA/VOMITING/DIARRHEA. ASSISTED PATIENT WITH MEALS. FOOT BRACES/BOOTS SECURED. REPOSITIONED PATIENT Q2H, HEELS OFFLOADED, PT KEPT CLEAN/DRY. SAFETY MEASURES IN PLACE. WILL CONTINUE TO MONITOR AND ENDORSE TO DIRECTOR LIFE RN.
--- NOTE | 2017-12-15 19:10 | NUR ---
RECEIVED PT AWAKE ON BED, NO SOB, DENIES ANY CHEST PAIN. MIDLINE ON R UPPER ARM, PATENT AND INTACT. ON SUPRAPUBIC CATHETER, DRAINING WELL VIA GRAVITY. SAFETY MEASURES INITIATED, CALL MCCARTY WITHIN REACH.
[2017-12-15] MEDS: SENNOSIDES 1 TABLET PO SCH (20:32)
[2017-12-15 20:38] VITALS: BP 121/66
[2017-12-16] MEDS: POLYVINYL ALCOHOL OPHT DROPS 15 ML BOTTLE EACHEYE SCH ×4 (00:15→17:34)
[2017-12-16] MEDS: PIPERACILLIN/TAZOBACTAM/D5W 50 ML IV SCH ×2 (00:15→05:42)
[2017-12-16 04:27] VITALS: BP 118/69
[2017-12-16] MEDS: LEVOTHYROXINE SODIUM 112 MCG TABLET PO SCH (06:12)
[2017-12-16] MEDS: PANTOPRAZOLE SODIUM 40 MG TABLET.DR PO SCH (06:12)
--- NOTE | 2017-12-16 06:51 | NUR ---
pt resting comfortably on bed, aaox3, no signs of respiratory distress noted. Midline on R upper arm, patent and intact. FC, draining well via gravity, with clear yellow urine output. all needs attended and met, safe environment maintained at all times, call ríos within reach.
[2017-12-16 07:06] LABS: ALANINE AMINOTRANSFERASE 10 U/L (14-59); ALKALINE PHOSPHATASE 88 U/L (50-136); ASPARTATE AMINOTRANSFERASE 13 U/L (15-37); BILIRUBIN,TOTAL 0.2 mg/dL (0.2-1.0); CARBON DIOXIDE 27 mmol/L (21-32); CHLORIDE 105 mmol/L (98-107); CREATININE 0.5 mg/dL (0.6-1.3); GLUCOSE 88 mg/dL (74-106); MAGNESIUM 1.7 mg/dL (1.8-2.4); PHOSPHOROUS 3.4 mg/dL (2.5-4.9); POTASSIUM 4.3 mmol/L (3.5-5.1); TOTAL PROTEIN, SERUM 6.9 g/dL (6.4-8.2); UREA NITROGEN, BLOOD 9 mg/dL (7-18)
[2017-12-16 07:14] LABS: BASOPHILS % (AUTO) 0.2 % (0.0-2.0); EOSINOPHILS # (AUTO) 0.1 K/uL (0.0-0.7); EOSINOPHILS % (AUTO) 0.6 % (0.0-7.0); HEMATOCRIT 26.1 % (31.2-41.9); HEMOGLOBIN 8.3 g/dL (10.9-14.3); LYMPHOCYTES # (AUTO) 1.3 K/uL (20.0-40.0); LYMPHOCYTES % (AUTO) 7.5 % (20.5-51.5); MEAN CORPUSCULAR HEMOGLOBIN 25.4 uug (24.7-32.8); MEAN CORPUSCULAR HGB CONC 32 g/dL (32.3-35.6); MEAN CORPUSCULAR VOLUME 79.7 fL (75.5-95.3); MONOCYTES # (AUTO) 1.2 K/uL (2.0-10.0); MONOCYTES % (AUTO) 6.9 % (0.0-11.0); NEUTROPHILS # (AUTO) 15.2 K/uL (1.8-8.9); NEUTROPHILS % (AUTO) 84.8 % (38.5-71.5); PLATELET COUNT (AUTO) 562 K/uL (179-408); RED BLOOD CELL COUNT(AUTO) 3.27 MIL/uL (3.63-4.92); WHITE BLOOD COUNT (AUTO) 17.9 K/uL (3.8-11.8)
--- NOTE | 2017-12-16 07:54 | NUR ---
Awake, alert, comfortable.
[2017-12-16] MEDS: AMLODIPINE 5 MG TABLET PO SCH (08:59)
[2017-12-16] MEDS: ASCORBIC ACID 500 MG TABLET PO SCH (08:59)
[2017-12-16] MEDS: DOCUSATE SODIUM 100 MG CAPSULE PO SCH (08:59)
[2017-12-16] MEDS: LACTOBACILLUS RHAMNOSUS GG 1 EACH CAPSULE PO SCH (08:59)
[2017-12-16] MEDS: FERROUS SULFATE 325 MG TABEC PO SCH (08:59)
[2017-12-16] MEDS: MULTIVIT, IRON, MIN NO. 8, FA TABLET PO SCH (08:59)
[2017-12-16] MEDS: ZINC SULFATE 220 MG CAPSULE PO SCH (08:59)
[2017-12-16] MEDS: SODIUM HYPOCHLORITE 0.125% 473 ML BOTTLE TP SCH (09:00)
[2017-12-16] MEDS: PROTEIN SUPPLEMENT (PROSTAT) 30 ML LIQUID PO SCH ×2 (09:03→17:33)
[2017-12-16 09:08] LABS: BAND % (MANUAL) 3 % (0-10); LYMPHOCYTES % (MANUAL) 9 % (20-40); METAMYELOCYTES % 3 % (0-1); MONOCYTES % (MANUAL) 8 % (2-10); MYELOCYTES % 5 % (0-0); NEUTROPHILS % (MANUAL) 72 % (42-75)
[2017-12-16] MEDS ORDERED: SULFAMETH/TRIMETH 800/160 MG TABLET PO SCH (11:00)
[2017-12-16 12:05] VITALS: BP 118/73
[2017-12-16] MEDS: VANCOMYCIN FOR PO/GT/NG USE PO SCH ×2 (12:10→17:34)
[2017-12-16] MEDS ORDERED: LEVOFLOXACIN 750MG/D5W 750 MG in PREMIXED 1 EACH IV ONE (12:34)
[2017-12-16] MEDS ORDERED: PROT30LI PO (12:45)
[2017-12-16] MEDS ORDERED: FERR325T28 PO (12:45)
[2017-12-16] MEDS ORDERED: TRAM50TA2 PO (12:45)
[2017-12-16] MEDS ORDERED: VANC500V PO (12:45)
[2017-12-16] MEDS ORDERED: SODI473S8 TP (12:45)
[2017-12-16] MEDS ORDERED: LEVO500T2 PO (12:45)
[2017-12-16] MEDS ORDERED: ZINC220C8 PO (12:45)
[2017-12-16] MEDS ORDERED: MENT71OI TOP (12:45)
[2017-12-16] MEDS ORDERED: SULF1TAB3 PO (12:45)
[2017-12-16] MEDS ORDERED: MAGNESIUM OXIDE 400 MG TABLET PO ONE (12:45)
[2017-12-16] MEDS ORDERED: Multivit, Iron, Min No. 8, Fa PO (12:45)
[2017-12-16] MEDS ORDERED: FUROSEMIDE 20 MG/2 ML VIAL IV ONE (12:45)
[2017-12-16] MEDS ORDERED: HYDR-3326 PO (12:47)
[2017-12-16] MEDS: SOD FERRIC GLUC COMPLX/SUCROSE 125 MG in IV NORMAL SALINE 100 ML IV SCH (15:23)
[2017-12-16 15:42] VITALS: BP 129/75
[2017-12-16] MEDS: ONDANSETRON ODT 4 MG TAB.RAPDIS SL PRN (16:23)
--- NOTE | 2017-12-16 18:50 | NUR ---
With discharge order to SNF. Midline removed. Report given to Stef[facility]. Discharge per gurney/ambulance in fair condition, afebrile, not in distress.
== END 2017-12-16 18:45 | DRG 853 ==
LOC: ER 10:21 → TELE 14:43 → MED 12-11 21:33
PROVIDERS: ADMIT Internal Medicine; ATTEND Internal Medicine
PROC: 06HY33Z Insertion of Infusion Device into Lower Vein, Percutaneous Approach (ICD-10-PCS; 2017-12-07)
PROC: 0KBP0ZZ Excision of Left Hip Muscle, Open Approach (ICD-10-PCS; principal; 2017-12-09)
PROC: 0KBN0ZZ Excision of Right Hip Muscle, Open Approach (ICD-10-PCS; 2017-12-09)
PROC: 0T9B70Z Drainage of Bladder with Drainage Device, Via Natural or Artificial Opening (ICD-10-PCS; 2017-12-10)
PROC: 05H533Z Insertion of Infusion Device into Right Subclavian Vein, Percutaneous Approach (ICD-10-PCS; 2017-12-11)
PROC: B546ZZA Ultrasonography of Right Subclavian Vein, Guidance (ICD-10-PCS; 2017-12-11)
PROC: 30243N1 Transfusion of Nonautologous Red Blood Cells into Central Vein, Percutaneous Approach (ICD-10-PCS; 2017-12-13)
DX: A41.59 Other Gram-negative sepsis (principal); L89.154 Pressure ulcer of sacral region, stage 4; L89.324 Pressure ulcer of left buttock, stage 4; L89.314 Pressure ulcer of right buttock, stage 4; G92 Toxic encephalopathy; E43 Unspecified severe protein-calorie malnutrition; J18.9 Pneumonia, unspecified organism; N39.0 Urinary tract infection, site not specified; G82.20 Paraplegia, unspecified; K59.2 Neurogenic bowel, not elsewhere classified; D68.59 Other primary thrombophilia; R18.8 Other ascites; R65.20 Severe sepsis without septic shock; D50.9 Iron deficiency anemia, unspecified; H54.3 Unqualified visual loss, both eyes; S24.102S Unspecified injury at T2-T6 level of thoracic spinal cord, sequela; V89.2XXS Person injured in unspecified motor-vehicle accident, traffic, sequela; N31.9 Neuromuscular dysfunction of bladder, unspecified; Z93.6 Other artificial openings of urinary tract status; Z88.6 Allergy status to analgesic agent; Z91.018 Allergy to other foods; Z91.010 Allergy to peanuts; K21.9 Gastro-esophageal reflux disease without esophagitis; Z90.49 Acquired absence of other specified parts of digestive tract; T83.038A Leakage of other urinary catheter, initial encounter; Z95.828 Presence of other vascular implants and grafts; K56.41 Fecal impaction; Z68.25 Body mass index [BMI] 25.0-25.9, adult; E87.6 Hypokalemia; E03.9 Hypothyroidism, unspecified; Z80.3 Family history of malignant neoplasm of breast; Z83.3 Family history of diabetes mellitus; Z82.49 Family history of ischemic heart disease and other diseases of the circulatory system; Z80.8 Family history of malignant neoplasm of other organs or systems; Z80.6 Family history of leukemia; I10 Essential (primary) hypertension; R16.0 Hepatomegaly, not elsewhere classified
CPT/HCPCS: 36415; 71045; 76700; 83550; 83605; 83690; 83735; 84100; 84443; 84703; 85025; 85730; 86850; 86900; 86901; 86920; 87040; 87077; 87086; 93005; A4217; A4663; C1751; J1940; J1956; J2405; J2543; J2916; J3370; J3475; J3490; J7030; J7040; J7050; P9016-BL; P9021; Q0162